=== PATIENT | male | born 1945 | race Caucasian/White ===

== ENCOUNTER 2018-10-30 10:29 | Day surgery (SDC) | payer MEDICARE, OTHER ==
[~2018-10-30] VITALS: Ht 175.3 cm; Wt 90.2 kg
[2018-10-30] MEDS ORDERED: ATOR80TA59 PO (10:39)
[2018-10-30] MEDS ORDERED: GABA-843 PO (10:39)
[2018-10-30] MEDS ORDERED: METF-839 PO (10:39)
[2018-10-30] MEDS ORDERED: RANI300T PO (10:39)
[2018-10-30] MEDS ORDERED: NS 1,000 ML IV ONE (11:15)
[2018-10-30 11:48] LABS: BASO # 0.1 10^3/uL (0.0-0.2); BASO % 0.8 % (0.0-1.0); EOS # 0.2 10^3/uL (0.0-0.50); EOS % 2.6 % (0.0-3.0); HEMATOCRIT 44.1 % (42.0-52.0); HEMOGLOBIN 14.6 g/dl (13.5-17.5); LYMPH % 23.9 % (24.0-44.0); MEAN CORPUSCULAR HEMOGLOBIN 31.3 pg (27.0-33.0); MEAN CORPUSCULAR HGB CONC 33.1 g/dl (32.0-36.5); MEAN CORPUSCULAR VOLUME 94.6 fl (80.0-96.0); MONO # 0.7 10^3/uL (0.0-0.8); MONO % 8.4 % (0.0-5.0); NEUTROPHILS # 5.4 10^3/uL (1.8-7.7); NEUTROPHILS % 63.9 % (36.0-66.0); PLATELET COUNT, AUTOMATED 321 10^3/uL (150-450); RED BLOOD COUNT 4.66 10^6/uL (4.30-6.10); WHITE BLOOD COUNT 8.4 10^3/uL (4.0-10.0)
[2018-10-30 12:48] LABS: ALBUMIN 4.5 GM/DL (3.2-5.2); ALT/SGPT 26 U/L (12-78); BILIRUBIN,DIRECT < 0.1 MG/DL (0.0-0.2); BILIRUBIN,TOTAL 0.6 MG/DL (0.2-1.0); BLOOD UREA NITROGEN 20 MG/DL (7-18); CALCIUM LEVEL 9.7 MG/DL (8.8-10.2); CARBON DIOXIDE LEVEL 28 MEQ/L (21-32); CHLORIDE LEVEL 102 MEQ/L (98-107); CREATININE FOR GFR 1.13 MG/DL (0.70-1.30); GLOMERULAR FILTRATION RATE > 60.0 (>42); GLUCOSE, FASTING 106 MG/DL (70-100); LIPASE 267 U/L (73-393); POTASSIUM SERUM 4.2 MEQ/L (3.5-5.1); SODIUM LEVEL 136 MEQ/L (136-145)
[2018-10-30] MEDS ORDERED: ISOVUE-370 76% 100ML VIAL (Q9967) As Ordered ONE (12:53)
[2018-10-30] MEDS ORDERED: MORPHINE 2 MG/ML 1ML SYRINGE (J2270) IV ONE (13:00)
--- NOTE | 2018-10-30 13:17 | REP ---
Clinical: Right-sided abdominal pain with diarrhea. Technique: Axial contrast enhanced images from the lung bases to the pubic symphysis using 100 ml Isovue 370 intravenous contrast material with coronal and sagittal re-formations. Findings: The appendix is dilated to approximately 13.6 mm and includes a small appendicolith and mild periappendiceal inflammatory stranding consistent with acute appendicitis (images [id number]). Remainder of the small large bowel is without further inflammatory process. No evidence for obstruction or perforation. Sigmoid diverticulosis noted without acute diverticulitis. Liver, spleen, pancreas, gallbladder, bilateral adrenal glands and kidneys are relatively normal. Pelvis demonstrates normal bladder and findings to suggest prior prostatectomy. No ascites. No free air. No significant adenopathy. Abdominal aorta without aneurysm or dissection. Osseous structures demonstrate degenerative changes without focal abnormality. Lung bases are clear. Impression: Findings most compatible with acute appendicitis and correlation is required. Electronically Signed by Karri Larios MD 10/30/2018 01:09 P
[2018-10-30] MEDS ORDERED: TYLE325T5 PO (15:03)
[2018-10-30] MEDS ORDERED: CIPROFLOXACIN 400 MG in APPROPRIATE DILUENT 1 EA IV ONE (15:30)
[2018-10-30] MEDS ORDERED: metroNIDAZOLE 500 MG in APPROPRIATE DILUENT 1 EA IV ONE (15:30)
[2018-10-30] MEDS ORDERED: LIDOCAINE 1% SDV INJ 30 ML VIAL As Ordered ONE (16:28)
[2018-10-30] MEDS ORDERED: BUPIVACAINE HCL 0.25% 30 ML VIAL As Ordered ONE (16:28)
[2018-10-30] MEDS ORDERED: LR 1,000 ML IV SCH ×2 (16:30→18:45)
[2018-10-30] MEDS ORDERED: fentaNYL 100 MCG/2 ML INJECTION (J3010) As Ordered ONE ×3 (16:35→18:30)
[2018-10-30] MEDS ORDERED: LIDOCAINE 2% INJ 100 MG/5 ML SDV (FOR ANES.) As Ordered ONE (16:35)
[2018-10-30] MEDS ORDERED: ROCURONIUM BROMIDE 50 MG/5 ML VIAL As Ordered ONE (16:35)
[2018-10-30] MEDS ORDERED: PROPOFOL 200 MG/20 ML VIAL As Ordered ONE (16:35)
[2018-10-30] MEDS ORDERED: MIDAZOLAM INJ 2 MG/2 ML VIAL (J2250) As Ordered ONE (16:36)
[2018-10-30] MEDS ORDERED: metroNIDAZOLE/NACL 500MG(5MG/ML)100 ML BAG (S0030) As Ordered ONE (16:36)
[2018-10-30] MEDS ORDERED: dexameTHASONE 4 MG/ML 1ML VIAL (J1100) As Ordered ONE (16:38)
[2018-10-30] MEDS ORDERED: ONDANSETRON 4MG/2ML VIAL (J2405) As Ordered ONE (16:38)
--- NOTE | 2018-10-30 17:00 | HPEPDOC ---
General Surgery H&P Date of Admission Oct 30, 2018 Attending Physician: NU ALVARES MD History and Physical CHIEF COMPLAINT: diarrhea and abdominal pain HISTORY OF PRESENT ILLNESS: Patient presented to the emergency room with complaints of a 2 week history of loose stools and were within 5-7 times a day for the past few days having right-sided abdominal discomfort. He denies any fevers chills, vomiting. Denies any sick contacts. ALLERGIES: Please see below. HOME MEDICATIONS: Please see below. PAST MEDICAL HISTORY: 1. Prostate cancer 2. Diabetes 3. Hypercholesterolemia 4. Gastroesophageal reflux PAST SURGICAL HISTORY: 1. Prostatectomy PERSONAL/SOCIAL HISTORY: Previous smoker, quit remotely. drinks 1 beer daily REVIEW OF SYSTEMS: GENERAL: Denies chills, fatigue, fever, weight gain and weight loss. HEENT: Denies blurred vision and double vision. Denies ear symptoms. Denies hoarseness. NECK: Denies any neck pain. CARDIOVASCULAR: Denies chest pain and palpitations. MUSCULOSKELETAL: Denies arthralgias, back pain and thrombophlebitis. SKIN: Denies rash. NEUROLOGIC: Denies headache, stroke and transient ischemic attack. PSYCHIATRIC: Denies anxiety and depression. ENDOCRINE: Denies thyroid disease. HEMATOLOGY/ONCOLOGY: Denies any bleeding or clotting disorder. HEART: Denies any chest pains, palpitations, paroxysmal dyspnea, orthopnea. PULMONARY: Denies chronic cough, dyspnea and wheezing. GASTROINTESTINAL: Denies rectal bleeding, family history of colon cancer, constipation, diarrhea, dysphagia, heartburn and jaundice. Patient is a colonoscopy done GENITOURINARY: Denies dysuria, frequency, hematuria and nocturia. ENDOCRINE: Denies polydipsia, polyphagia, polyuria, heat or cold intolerance. INFECTIOUS: Denies any recent upper respiratory tract infection, UTI, need for use of antibiotics. NUTRITION: Reports fair appetite. PHYSICAL EXAMINATION: VITAL SIGNS: Please see below. GENERAL APPEARANCE: Patient is comfortable. Awake, alert, oriented. HEENT: Normocephalic, atraumatic. [place] palpebral conjunctivae. Anicteric sclerae. Lips moist. CHEST: No chest wall abnormalities. Normal respiratory motion/effort. NECK: Supple. No thyromegaly. No lymphadenopathies. LUNGS: Lung sounds are clear to auscultation bilaterally. No wheezing appreciated. HEART: No chest wall abnormalities. Heart rate and rhythm are regular with no murmurs. ABDOMEN: Flat abdomen, nondistended, lower suprapubic midline incision from prostatectomy without any hernia. Minimal tenderness in the palpation of the right lower quadrant area without any guarding. SKIN: Warm, moist. EXTREMITIES: Extremities have no deformities. No edema identified. NEUROLOGICAL: Awake, alert, oriented . ANCILLARIES: . LABORATORY DATA: Please see below. MICROBIOLOGY: Please see below. IMAGING: CT abdomen and pelvis The appendix is dilated to approximately 13.6 mm and includes a small appendicolith and mild periappendiceal inflammatory stranding consistent with acute appendicitis (images [id number]). Remainder of the small large bowel is without further inflammatory process. No evidence for obstruction or perforation. Sigmoid diverticulosis noted without acute diverticulitis. IMPRESSION AND PLAN: Diarrhea Acute appendicitis I told him that it is still not clear why he is having diarrhea and in of itself appendicitis should not cause this much diarrhea. He does have discomfort over the right side of his abdomen and his CAT scans significant for an enlarged appendix containing appendicolith with associated inflammation consistent with an acute appendicitis. This we will go ahead and proceed to the operating room for planned laparoscopic appendectomy. In the ER they have sent for stool examination which did not show any evidence for any stillborn infection that might explain the diarrhea. Vital Signs Vital Signs Date Time Temp Pulse Resp B/P (MAP) Pulse Ox O2 Delivery O2 Flow Rate FiO2 10/30/18 13:46 97.5 62 16 138/68 (91) 100 Room Air Laboratory Data Labs 24H Laboratory Tests 2 10/30/18 11:31: Immature Granulocyte % (Auto) 0.4, White Blood Count 8.4, Red Blood Count 4.66, Hemoglobin 14.6, Hematocrit 44.1, Mean Corpuscular Volume 94.6, Mean Corpuscular Hemoglobin 31.3, Mean Corpuscular Hemoglobin Concent 33.1, Red Cell Distribution Width 12.0, Platelet Count 321, Neutrophils (%) (Auto) 63.9, Lymphocytes (%) (Auto) 23.9L, Monocytes (%) (Auto) 8.4H, Eosinophils (%) (Auto) 2.6, Basophils (%) (Auto) 0.8, Neutrophils # (Auto) 5.4, Lymphocytes # (Auto) 2.0, Monocytes # (Auto) 0.7, Eosinophils # (Auto) 0.2, Basophils # (Auto) 0.1, Nucleated Red Blood Cells % (auto) 0.0, Urine Color YELLOW, Urine Appearance CLEAR, Urine pH 5.0, Urine Specific [place]la 1.027, Urine Protein 1+H, Urine Glucose (UA) NEGATIVE, Urine Ketones NEGATIVE, Urine Blood NEGATIVE, Urine Nitrite NEGATIVE, Urine Bilirubin NEGATIVE, Urine Urobilinogen 0.2, Urine Leukocyte Esterase NEGATIVE, Urine WBC (Auto) 1, Urine RBC (Auto) 1, Urine Hyaline Casts (Auto) 0, Urine Bacteria (Auto) NEGATIVE, Urine Squamous Epithelial Cells 0, Urine Mucus (Auto) SMALL, Urine Sperm (Auto) , Anion Gap 6L, Glomerular Filtration Rate > 60.0, Lactic Acid Level 1.6, Calcium Level 9.7, Aspartate Amino Transf (AST/SGOT) 22, Alanine Aminotransferase (ALT/SGPT) 26, Alkaline Phosphatase 74, Total Bilirubin 0.6, Direct Bilirubin < 0.1, Total Protein 9.0H, Albumin 4.5, Albumin/Globulin Ratio 1.00, Lipase 267 CBC/BMP Laboratory Tests 10/30/18 11:31 Red Blood Count 4.66, Mean Corpuscular Volume 94.6, Mean Corpuscular Hemoglobin 31.3, Mean Corpuscular Hemoglobin Concent 33.1, Red Cell Distribution Width 12.0, Neutrophils (%) (Auto) 63.9, Lymphocytes (%) (Auto) 23.9 L, Monocytes (%) (Auto) 8.4 H, Eosinophils (%) (Auto) 2.6, Basophils (%) (Auto) 0.8, Neutrophils # (Auto) 5.4, Lymphocytes # (Auto) 2.0, Monocytes # (Auto) 0.7, Eosinophils # (Auto) 0.2, Basophils # (Auto) 0.1 Microbiology Microbiology 10/30/18 Gastrointestinal Tract Panel (PCR) - Final, Complete Home Medications Scheduled Atorvastatin Calcium (Atorvastatin Calcium) 80 Mg Tab, 40 MG PO QHS, (Reported) Gabapentin (Gabapentin) 300 Mg Cap, 300 MG PO BID, (Reported) Metformin Hydrochloride (Metformin Hydrochloride) 500 Mg Tab, 500 MG PO DAILY, (Reported) Scheduled PRN Acetaminophen (Tylenol) 325 Mg Tab, 325 MG PO Q4H PRN for PAIN / FEVER, (Reported) Ranitidine HCl (Ranitidine HCl) 300 Mg Tab, 1 TAB PO DAILY PRN for HEARTBURN, (Reported) Allergies Coded Allergies: Penicillins (Verified Allergy, Intermediate, FACIAL SWELLING, 10/30/18) NU ALVARES MD Oct 30, 2018 16:47
[2018-10-30] MEDS ORDERED: SUGAMMADEX SODIUM 500 MG/5 ML VIAL (BRIDION) As Ordered ONE (17:23)
[2018-10-30] MEDS ORDERED: ePHEDrine SULFATE 25 MG/5 ML(5MG/ML) SYRINGE As Ordered ONE (17:25)
[2018-10-30] MEDS ORDERED: ACETAMINOPHEN 325 MG TAB PO PRN (18:15)
[2018-10-30] MEDS ORDERED: FAMOTIDINE 20 MG TAB PO PRN (18:15)
--- NOTE | 2018-10-30 18:19 | ROOPDOC ---
[facility] Report Of Operation Report of Operation DATE OF PROCEDURE: 10/30/18 PREPROCEDURE DIAGNOSES: Acute Appendicitis. POSTPROCEDURE DIAGNOSES: Acute Appendicitis. PROCEDURE: Laparoscopic Appendectomy. SURGEON: Theo Borjas MD RUG SIZER: ANESTHESIA: General Anesthesia. ESTIMATED BLOOD LOSS: Approximately 10 mL. COMPLICATIONS: none. REMARKS: thickened appendix throughout the course, enlarged tip of the appendix. PROCEDURE NOTE:73 M with 10 day history of diarrhea, 2 day history of mild right lower quadrant abdominal pain. DESCRIPTION OF PROCEDURE: Patient has been given a dose of Zosyn perioperatively.Patient was brought to the operating room, placed supine on the table. Sequential compression device placed for DVT prophylaxis. General endotracheal anesthesia started. The abdomen prepped and draped in usual sterile fashion. After a surgical timeout, we began our surgery Entry into the abdomen done through an incision above the umbilicus. Veress needle inserted on a controlled fashion. Intra-abdominal placement confirmed with saline drop technique. CO2 insufflation started to a pressure of 15 mmHg. Using the same incision an 8 mm port was placed under direct vision of laparoscope. Insertion site was inspected for injury and none was found. He was placed on a Trendelenburg position the right side tilted to about 30 to allow for better visualization of the appendix. 2 5 mm working ports were placed at the suprapubic area and left lower quadrant area under direct vision. Operative findings: The appendix is noted located coursing laterally on the right lower quadrant area. Throughout its course, it appears thickened with doubling of its diameter at the tip. This was traced back to its base and this appears healthy and not involved. No free fluid. The appendix was located, The Surrounding bowels retracted away from the appendix. This was grasped and detached from its attachment to the lateral abdominal wall, to pull the base of the appendix into view. The mesoappendix was divided using Harmonic scalpel down to the base. Two PDS Endoloops were placed to ligate the appendix at its base then divided with a Harmonic Scalpel the stump cauterized. Stump appears healthy. Appendix was then delivered into an Endo Catch bag. After re-insufflation the surgical site was inspected for hemostasis, the visualized fluid collections irrigated and suctioned off until clear return. Surrounding areas of the abdomen and inspected for fluid collections or signs of injury. The abdomen was deflated. All ports removed. The umbilical fascial defect repaired with 0 Vicryl in a mattress fashion. All skin incisions closed with 4-0 Monocryl in a subcuticular fashion. Steri-Strips and gauze dressing used for wound coverage. Patient was promptly awake and extubated and brought to recovery room stable. All counts of sponges and instruments verified to be correct. THEO BORJAS MD Oct 30, 2018 18:19
--- NOTE | 2018-10-30 18:20 | POST-OPPD ---
Postoperative Procedure Note Date Of Procedure: Oct 30, 2018 PREPROCEDURE DIAGNOSES: Acute Appendicitis. POSTPROCEDURE DIAGNOSES: Acute Appendicitis. PROCEDURE: Laparoscopic Appendectomy. SURGEON: Theo Borjas MD EXECUTIVE STEWARD: ANESTHESIA: General Anesthesia. ESTIMATED BLOOD LOSS: Approximately 10 mL. COMPLICATIONS: none. REMARKS: thickened appendix throughout the course, enlarged tip of the appendix. PROCEDURE NOTE:73 M with 10 day history of diarrhea, 2 day history of mild right lower quadrant abdominal pain. SPECIMENS: appendix COMPLICATIONS: nonee POSTOPERATIVE CONDITION: stable, extubated THEO BORJAS MD Oct 30, 2018 18:20
[2018-10-30] MEDS: fentaNYL 100 MCG/2 ML INJECTION (J3010) IV PRN ×4 (18:32→19:08)
[2018-10-30] MEDS ORDERED: PERCOCET 5MG/325MG TAB PO PRN (18:45)
[2018-10-30] MEDS ORDERED: ONDANSETRON 4MG/2ML VIAL (J2405) IV PRN (18:45)
[2018-10-30] MEDS ORDERED: METOCLOPRAMIDE INJ 10MG/2ML VIAL (J2765) IV PRN (18:45)
[2018-10-30] MEDS ORDERED: HYDROMORPHONE HCL 0.5 MG/ 0.5 ML SYRINGE (J1170 PER 1) IV PRN (18:45)
[2018-10-30 19:45] VITALS: BP 174/87
[2018-10-30 20:15] VITALS: BP 167/85
[2018-10-30] MEDS: GABAPENTIN 300 MG CAP PO SCH (20:31)
[2018-10-30] MEDS ORDERED: ATORVASTATIN 20 MG TAB PO SCH (21:00)
[2018-10-30 21:15] VITALS: BP 139/72
[2018-10-30 22:15] VITALS: BP 150/72
[2018-10-30 23:15] VITALS: BP 130/68
[2018-10-31 00:15] VITALS: BP 135/65
[2018-10-31 02:00] VITALS: BP 140/67
[2018-10-31 06:00] VITALS: BP 149/75
[2018-10-31 06:02] LABS: BASO % 0.2 % (0.0-1.0); HEMATOCRIT 40.7 % (42.0-52.0); HEMOGLOBIN 13.6 g/dl (13.5-17.5); LYMPH # 1.2 10^3/uL (1.5-4.5); LYMPH % 8.9 % (24.0-44.0); MEAN CORPUSCULAR HEMOGLOBIN 31.5 pg (27.0-33.0); MEAN CORPUSCULAR HGB CONC 33.4 g/dl (32.0-36.5); MEAN CORPUSCULAR VOLUME 94.2 fl (80.0-96.0); MONO # 0.8 10^3/uL (0.0-0.8); MONO % 6.4 % (0.0-5.0); NEUTROPHILS # 10.9 10^3/uL (1.8-7.7); NEUTROPHILS % 83.9 % (36.0-66.0); PLATELET COUNT, AUTOMATED 285 10^3/uL (150-450); RED BLOOD COUNT 4.32 10^6/uL (4.30-6.10); WHITE BLOOD COUNT 12.9 10^3/uL (4.0-10.0)
[2018-10-31 06:25] LABS: BLOOD UREA NITROGEN 15 MG/DL (7-18); CALCIUM LEVEL 8.5 MG/DL (8.8-10.2); CARBON DIOXIDE LEVEL 25 MEQ/L (21-32); CHLORIDE LEVEL 105 MEQ/L (98-107); CREATININE FOR GFR 0.95 MG/DL (0.70-1.30); GLOMERULAR FILTRATION RATE > 60.0 (>42); GLUCOSE, FASTING 114 MG/DL (70-100); POTASSIUM SERUM 4.4 MEQ/L (3.5-5.1); SODIUM LEVEL 137 MEQ/L (136-145)
[2018-10-31] MEDS ORDERED: KETOROLAC 30 MG/ML VIAL (J1885) IV PRN (06:45)
[2018-10-31] MEDS: PERCOCET 5MG/325MG TAB PO PRN ×2 (07:04→13:48)
[2018-10-31] MEDS: GABAPENTIN 300 MG CAP PO SCH (09:22)
[2018-10-31 10:00] VITALS: BP 128/70
[2018-10-31] MEDS ORDERED: PERCOCET PO (13:24)
--- NOTE | 2018-10-31 13:27 | IPNPDOC ---
Subjective General Date/Time Seen The patient was seen on 10/31/18 at 13:25. Subject Chief Complaint/History The patient is a 73-year-old male admitted with a reason for visit of Acute Appendicitis. Feels better. He has not had a BM during this admission. Tolerating diet. Current Medications Current Medications Current Medications Acetaminophen (Tylenol Tab) 325 mg Q4H PRN PO PAIN / FEVER Last administered on 10/31/18at 03:14; Start 10/30/18 at 18:15 Atorvastatin Calcium (Lipitor) 40 mg QHS PO Last administered on 10/30/18at 20:30; Start 10/30/18 at 21:00 Famotidine (Pepcid) 20 mg DAILY PRN PO HEARTBURN; Start 10/30/18 at 18:15 Fentanyl Citrate (Sublimaze) 25 mcg Q5MP PRN IV MODERATE PAIN (PS 4-7) Last administered on 10/30/18at 19:08; Start 10/30/18 at 18:45; Stop 10/30/18 at 19:08; Status DC Gabapentin (Neurontin) 300 mg BID PO Last administered on 10/31/18at 09:22; Start 10/30/18 at 21:00 Home Med (Med Rec Complete!) ASDIRECTED XX ; Start 10/30/18 at 15:15; Stop 10/30/18 at 15:22; Status DC Hydromorphone HCl (Dilaudid) 0.4 mg Q5MP PRN IV MODERATE/SEVERE PAIN (PS 5-10); Start 10/30/18 at 18:45; Stop 10/30/18 at 19:45; Status DC Ketorolac Tromethamine (ToRADol) 30 mg Q6H PRN IV PAIN; Start 10/31/18 at 06:45; Stop 11/05/18 at 06:44 Lactated Ringer's 1,000 ml @ 75 mls/hr [id number] IV ; Start 10/30/18 at 18:45; Stop 10/30/18 at 19:45; Status DC Lactated Ringer's 1,000 ml @ 125 mls/hr Q8H IV ; Start 10/30/18 at 16:30; Stop 10/31/18 at 06:42; Status DC Metoclopramide HCl (REGLAN INJection) 10 mg Q6HP PRN IV NAUSEA OR VOMITING; Start 10/30/18 at 18:45; Stop 10/30/18 at 19:45; Status DC Ondansetron HCl (ZOFRAN INJection) 4 mg Q4HP PRN IV NAUSEA OR VOMITING; Start 10/30/18 at 18:45; Stop 10/30/18 at 19:45; Status DC Oxycodone/ Acetaminophen (Percocet 5mg/ 325mg Tablet) 1 tab ASDIRECTED PRN PO MILD/MODERATE PAIN (PS 1-7) Last administered on 10/30/18at 19:20; Start 10/30/18 at 18:45; Stop 10/30/18 at 19:45; Status DC Oxycodone/ Acetaminophen (Percocet 5mg/ 325mg Tablet) 1 tab Q6HP PRN PO MILD/MODERATE PAIN (PS 1-7) Last administered on 10/31/18at 07:04; Start 10/31/18 at 06:45 Allergies Coded Allergies: Penicillins (Verified Allergy, Intermediate, FACIAL SWELLING, 10/30/18) Objective Physical Examination Examination GENERAL APPEARANCE:comfortable. SKIN: Warm and moist. HEENT: Normocephalic, atraumatic. [place] palpebral conjunctiva, anicteric sclerae. Lips and mucosa appear moist. NECK: Supple, no thyromegaly. No obvious jugular venous distention. LUNGS: Clear to auscultation bilaterally. No wheezing appreciated. HEART: No chest wall abnormalities. Regular rate and rhythm with no murmurs appreciated. ABDOMEN: Abdomen is mildly round, soft, nondistended. Port site dressings are clean, dry, intact. Nontender to palpation over right lower quadrant area. EXTREMITIES: Extremities have no deformities. No edema identified. Vital Signs Vital Signs Date Time Temp Pulse Resp B/P (MAP) Pulse Ox O2 Delivery O2 Flow Rate FiO2 10/31/18 10:00 98.3 73 18 128/70 (89) 96 10/30/18 18:45 2 10/30/18 16:46 Room Air I&Os I&O- Last 24 Hours up to 6 AM 10/31/18 06:00 Intake Total 1600 ml Output Total 10 ml Balance 1590 ml Laboratory Data Labs 24H Laboratory Tests 2 10/31/18 05:51: Immature Granulocyte % (Auto) 0.6, White Blood Count 12.9H, Red Blood Count 4.32, Hemoglobin 13.6, Hematocrit 40.7L, Mean Corpuscular Volume 94.2, Mean Corpuscular Hemoglobin 31.5, Mean Corpuscular Hemoglobin Concent 33.4, Red Cell Distribution Width 11.9, Platelet Count 285, Neutrophils (%) (Auto) 83.9H, Lymphocytes (%) (Auto) 8.9L, Monocytes (%) (Auto) 6.4H, Eosinophils (%) (Auto) 0.0, Basophils (%) (Auto) 0.2, Neutrophils # (Auto) 10.9H, Lymphocytes # (Auto) 1.2L, Monocytes # (Auto) 0.8, Eosinophils # (Auto) 0.0, Basophils # (Auto) 0.0, Nucleated Red Blood Cells % (auto) 0.0, Anion Gap 7L, Glomerular Filtration Rate > 60.0, Blood Urea Nitrogen 15, Creatinine 0.95, Sodium Level 137, Potassium [place] 4.4, Chloride Level 105, Carbon Dioxide Level 25, Calcium Level 8.5L CBC/BMP Laboratory Tests 10/31/18 05:51 Red Blood Count 4.32, Mean Corpuscular Volume 94.2, Mean Corpuscular Hemoglobin 31.5, Mean Corpuscular Hemoglobin Concent 33.4, Red Cell Distribution Width 11.9, Neutrophils (%) (Auto) 83.9 H, Lymphocytes (%) (Auto) 8.9 L, Monocytes (%) (Auto) 6.4 H, Eosinophils (%) (Auto) 0.0, Basophils (%) (Auto) 0.2, Neutrophils # (Auto) 10.9 H, Lymphocytes # (Auto) 1.2 L, Monocytes # (Auto) 0.8, Eosinophils # (Auto) 0.0, Basophils # (Auto) 0.0, Calcium Level 8.5 L Microbiology Microbiology 10/30/18 Gastrointestinal Tract Panel (PCR) - Final, Complete Impression POD1 Laparoscopic Appendectomy for Acute Appendicitis diarrhea OK to go home. No need for antibiotics. Percocets prn for pain follow up with me in 2 weeks Consider outpatient colonoscopy (Patient has been previously seen by a Dr. Stallworth and is set to be scheduled for this) Plan / VTE VTE Prophylaxis Ordered?: No VTE Exclusion Mechanical Proph: Low Risk for VTE NU ALVARES MD Oct 31, 2018 13:27
== END 2018-10-31 14:05 | disposition home or self-care (01) ==
LOC: M ED 10:29 → M SDC 16:12 → M MS5PR 19:40 → M SDC 10-31 14:05
PROVIDERS: ATTEND Surgery
DX: K35.890 Other acute appendicitis without perforation or gangrene (principal); E11.9 Type 2 diabetes mellitus without complications; E78.5 Hyperlipidemia, unspecified; Z88.0 Allergy status to penicillin; Z79.4 Long term (current) use of insulin; Z79.899 Other long term (current) drug therapy; Z87.891 Personal history of nicotine dependence; Z85.46 Personal history of malignant neoplasm of prostate
CPT/HCPCS: 36415; 44970; 74177; 80048; 80076; 81001; 83605; 83690; 85025; 87507; 88304; 96365; 96375; 99284; J0744; J1100; J2250; J2405; J3010; Q9967

== ENCOUNTER → 2020-04-22 | Outpatient (CLI) | payer MEDICARE ==
[~2020-04-22] MED LIST: ATOR80TA59 PO; FAMO40TA3 PO; GABA-843 PO; MAPA500T2 PO; METF-839 PO; PANT40TA29 PO; PERCOCET PO; RANI300T PO; TYLE325T5 PO
== END ==
LOC: M LABSMTC 10:34
PROVIDERS: ATTEND Anesthesiology
DX: Z01.812 Encounter for preprocedural laboratory examination (principal); Z20.828 Contact with and (suspected) exposure to other viral communicable diseases
CPT/HCPCS: C9803; U0003

== ENCOUNTER 2020-04-27 06:48 | Day surgery (SDC) | payer MEDICARE ==
[~2020-04-27] VITALS: Ht 180.3 cm; Wt 86.2 kg
[~2020-04-27 06:48] MED LIST changes: +NS 1,000 ML IV ONE
[2020-04-27] MEDS ORDERED: SIMETHICONE 40MG/0.6ML DROPS 30ML As Ordered ONE (07:01)
[2020-04-27] MEDS ORDERED: LIDOCAINE 2% 100MG/5ML SDV (FOR ANES.) As Ordered ONE (07:09)
[2020-04-27] MEDS ORDERED: propofoL 200 MG/20 ML VIAL As Ordered ONE (07:09)
--- NOTE | 2020-04-27 08:14 | ROOR ---
Patient Name: Robb Blackmon Procedure Date: 04/27/2020 7:33 AM Date of : 1945 Age: 75 Room: [facility] Gender: Male Note Status: Finalized Procedure: Upper GI endoscopy Indications: Surveillance for malignancy due to personal history of Olmedo's esophagus Providers: Martínez Adames MD Referring MD: Jose G Montilla DO Requesting Provider: Medicines: Monitored Anesthesia Care Complications: No immediate complications. Procedure: Pre-Anesthesia Assessment: - Prior to the procedure, a History and Physical was performed, and patient medications and allergies were reviewed. The patient is competent. The risks and benefits of the procedure and the sedation options and risks were discussed with the patient. All questions were answered and informed consent was obtained. Patient identification and proposed procedure were verified by the physician, the nurse and the anesthesiologist in the procedure room. Mental Status Examination: alert and oriented. Airway Examination: normal oropharyngeal airway and neck mobility. Respiratory Examination: clear to auscultation. CV Examination: normal. Prophylactic Antibiotics: The patient does not require prophylactic antibiotics. Prior Anticoagulants: The patient has taken no previous anticoagulant or antiplatelet agents. ASA Grade Assessment: II - A patient with mild systemic disease. After reviewing the risks and benefits, the patient was deemed in satisfactory condition to undergo the procedure. The anesthesia plan was to use monitored anesthesia care (MAC). Immediately prior to administration of medications, the patient was re-assessed for adequacy to receive sedatives. The heart rate, respiratory rate, oxygen saturations, blood pressure, adequacy of pulmonary ventilation, and response to care were monitored throughout the procedure. The physical status of the patient was re-assessed after the procedure. The Endoscope was introduced through the mouth, and advanced to the second part of duodenum. The upper GI endoscopy was accomplished without difficulty. The patient tolerated the procedure well. Findings: The esophagus and gastroesophageal junction were examined with white light and narrow band imaging (NBI) from a forward view and retroflexed position. There were esophageal mucosal changes consistent with long-segment Olmedo's esophagus. These changes involved the mucosa at the upper extent of the gastric folds (42 cm from the incisors) extending to the Z-line (36 cm from the incisors). Circumferential salmon-colored mucosa was present from 33 to 42 cm, one tongue of salmon-colored mucosa was present from 32 to 33 cm and scattered islands of squamous mucosa were present. The maximum longitudinal extent of these esophageal mucosal changes was 6 cm in length. Mucosa was biopsied with a cold forceps for histology in a targeted manner and in 4 quadrants at intervals of 2 cm in the lower third of the esophagus. One specimen bottle was sent to pathology. Verification of patient identification for the specimen was done by the physician and nurse using the patient's name, date and medical record number. A small hiatal hernia was present. Scattered mild inflammation characterized by erythema and granularity was found in the gastric antrum. Biopsies were taken with a cold forceps for Helicobacter pylori testing. The duodenal bulb and second portion of the duodenum were normal. 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 Biopsied. - Small hiatal hernia. - Gastritis. Biopsied. - Normal duodenal bulb and second portion of the duodenum. Recommendation: - Patient has a contact number available for emergencies. The signs and symptoms of potential delayed complications were discussed with the patient. Return to normal activities tomorrow. Written discharge instructions were provided to the patient. - High fiber diet. - Continue present medications. - Await pathology results. - Repeat upper endoscopy in 1 year for surveillance of Olmedo's esophagus. - Telephone GI clinic for pathology results in 2 weeks. - Follow an antireflux regimen. - Return to primary care physician. Martínez Adames MD Martínez Adames MD 04/27/2020 8:14:44 AM Electronically signed by Martínez Adames MD Number of Addenda: 0 Note Initiated On: 04/27/2020 7:33 AM Estimated Blood Loss: Estimated blood loss was minimal.
[2020-04-27 08:32] VITALS: BP 149/66
== END 2020-04-27 08:32 | disposition home or self-care (01) ==
LOC: M OPP 06:48
PROVIDERS: ATTEND Internal Medicine Gastroenterology
DX: K22.70 Barrett's esophagus without dysplasia (principal); K44.9 Diaphragmatic hernia without obstruction or gangrene; K29.70 Gastritis, unspecified, without bleeding; Z09 Encounter for follow-up examination after completed treatment for conditions other than malignant neoplasm; E11.9 Type 2 diabetes mellitus without complications; J44.9 Chronic obstructive pulmonary disease, unspecified; Z79.899 Other long term (current) drug therapy; Z88.0 Allergy status to penicillin; Z87.891 Personal history of nicotine dependence; Z85.46 Personal history of malignant neoplasm of prostate

== ENCOUNTER 2020-10-21 09:34 | Emergency (ER) | payer MEDICARE ==
[~2020-10-21] VITALS: Ht 182.9 cm; Wt 89.5 kg
[~2020-10-21 09:34] MED LIST changes: +GABA-282 PO; -GABA-843 PO; -NS 1,000 ML IV ONE
--- NOTE | 2020-10-21 11:54 | REP ---
INDICATION: cough with bloody sputum, hx prostate cancer. COMPARISON: No comparison chest x-ray. TECHNIQUE: Two views.. FINDINGS: The lungs are well inflated and free of infiltrate. The pleural angles are sharp. The heart size is normal. Pulmonary vasculature is not increased. No significant bony abnormality is seen. The thoracic aorta is slightly tortuous. IMPRESSION: No active disease.. <Electronically signed by Pankaj Live > 10/21/20 [id number]
[2020-10-21 12:38] LABS: INR 1.02; PARTIAL THROMBOPLASTIN TIME 25.1 SECONDS (24.2-38.5); PROTHROMBIN TIME 13.6 SECONDS (12.5-14.3)
[2020-10-21] MEDS ORDERED: ISOVUE-370 76% 100ML VIAL As Ordered ONE (12:39)
[2020-10-21 12:41] LABS: D-DIMER QUANT 438.95 ng/ml (<500)
[2020-10-21 12:53] LABS: ALBUMIN 3.9 GM/DL (3.2-5.2); ALT/SGPT 25 U/L (12-78); BILIRUBIN,DIRECT < 0.1 MG/DL (0.0-0.2); BILIRUBIN,TOTAL 0.5 MG/DL (0.2-1.0); TOTAL PROTEIN 8.1 GM/DL (6.4-8.2)
[2020-10-21 13:03] LABS: BASO # 0.1 10^3/uL (0.0-0.2); BASO % 0.7 % (0.0-1.0); EOS # 0.2 10^3/uL (0.0-0.5); EOS % 2.6 % (0.0-3.0); HEMATOCRIT 41.3 % (42.0-52.0); HEMOGLOBIN 12.9 g/dl (13.5-17.5); LYMPH # 2.2 10^3/uL (1.5-5.0); LYMPH % 24.4 % (24.0-44.0); MEAN CORPUSCULAR HEMOGLOBIN 29.9 pg (27.0-33.0); MEAN CORPUSCULAR HGB CONC 31.2 g/dl (32.0-36.5); MEAN CORPUSCULAR VOLUME 95.8 fl (80.0-96.0); MONO # 0.8 10^3/uL (0.0-0.8); MONO % 8.5 % (2.0-8.0); NEUTROPHILS # 5.7 10^3/uL (1.5-8.5); NEUTROPHILS % 63.7 % (36.0-66.0); PLATELET COUNT, AUTOMATED 351 10^3/uL (150-450); RED BLOOD COUNT 4.31 10^6/uL (4.30-6.10)
--- NOTE | 2020-10-21 13:10 | REP ---
INDICATION: hemoptysis, hx barretts esophagus, prostate cx. COMPARISON: Comparison is made with today's chest x-ray.. TECHNIQUE: Helical scanning is acquired. 3 mm axial images are generated. Coronal and sagittal MPR and coronal MIP images are generated. FINDINGS: There is no evidence of infiltrate or atelectasis. No pleural or pericardial effusion is seen. There are several pulmonary nodules. There is a spiculated appearing right middle lobe nodule displayed on page 58 of 116 in series 201 of today's study. This measures 0.9 cm in greatest diameter. There is a smoothly marginated noncalcified nodule in the left lower lobe on page 64 of 116. There is a perifissural nodule in the left lower lobe on page 61 and a granulomatous calcification is seen in the left lower lobe on page 55. No other suspicious pulmonary nodules are seen. There is vascular calcification in the coronary artery distribution. There are scattered normal sized mediastinal lymph nodes. The largest of these is pretracheal lymph node measuring 8 mm in short axis dimension. No axillary or supraclavicular adenopathy is seen. No hilar adenopathy is appreciated. No endobronchial lesion is seen. In the abdomen, normal adrenal glands are seen. The visualized upper abdominal structures are unremarkable. Study is otherwise unremarkable. No bony destructive lesion is seen. IMPRESSION: There are 2 suspicious pulmonary nodules as described above, 1 in the right middle lobe and the other in the left lower lobe. Consider pulmonary medicine evaluation and possibly PET-CT study. Otherwise no active disease. <Electronically signed by Pankaj Live > 10/21/20 [id number]
[2020-10-21] MEDS ORDERED: PROAAER10 INH (13:53)
[2020-10-21] MEDS ORDERED: MOXI1TAB PO (13:53)
[2020-10-21 14:04] VITALS: BP 168/81
--- NOTE | 2020-10-22 12:38 | ED PDOC ---
Post-Departure Follow-Up ct chest faxed to dr chisholm for fu Dutch Golden MD Oct 22, 2020 12:38
== END 2020-10-21 14:06 | disposition home or self-care (01) ==
LOC: M ED 09:34
DX: J44.0 Chronic obstructive pulmonary disease with (acute) lower respiratory infection (principal); R91.1 Solitary pulmonary nodule; E11.9 Type 2 diabetes mellitus without complications; E78.5 Hyperlipidemia, unspecified; K22.70 Barrett's esophagus without dysplasia; Z79.899 Other long term (current) drug therapy; Z88.0 Allergy status to penicillin; Z87.891 Personal history of nicotine dependence

== ENCOUNTER → 2020-11-26 | Outpatient (CLI) | payer MEDICARE ==
[~2020-11-26] MED LIST changes: +MOXI1TAB PO; +PROAAER10 INH
--- NOTE | 2020-11-27 07:08 | REP ---
INDICATION: DIAGNOSING OTHER NON SPECIFIC FINDING LUNG FIELD. There is a history of prostate carcinoma. 9 mm nodule in the right middle lobe and 10 mm nodule in the left lower lobe on slice recent CT study. COMPARISON: Comparison CT study October 21, 2020.. TECHNIQUE: Sixty-nine minutes following the intravenous injection of a 13.57 mCi dose of F-18 FDG, three-dimensional PET scintigraphy is acquired from the skull base to the proximal thighs. Triplanar noncontrast CT scanning is acquired through the same anatomic range for attenuation correction, and image registration with scan parameters optimized to minimize radiation exposure to the patient. PET scintigraphy and CT datasets were fused and displayed on a workstation with multiplanar and projection display capability. FINDINGS: Head and neck soft tissues are unremarkable. There is no abnormal hypermetabolic uptake within the thorax. No hilar or mediastinal palak hypermetabolic uptake is seen. The right middle lobe nodule shows maximum standard uptake value of 1.06 and the left lower lobe pulmonary nodule maximum standard uptake values 1.27. There is no visible uptake in either nodule. In the abdomen and pelvis there is normal distribution of FDG to the liver, spleen, gastrointestinal, and genitourinary tracts. No abnormal adrenal uptake is seen. No abnormal abdominal or pelvic hypermetabolic uptake focus is seen. IMPRESSION: Negative PET scintigraphy. Neither of the 2 recently identified pulmonary nodules show hypermetabolic uptake. This does not completely exclude low grade malignancy. If histologic sampling is not pursued at this juncture, short interval follow-up by CT is recommended, 4-6 month time interval. <Electronically signed by Pankaj Live > 11/27/20 [id number]
== END ==
LOC: M PLARAD 14:47
PROVIDERS: ATTEND Internal Medicine Pulmonary Disease
DX: R91.8 Other nonspecific abnormal finding of lung field (principal)
CPT/HCPCS: 78815; A9552

== ENCOUNTER → 2020-11-27 | Outpatient (CLI) | payer MEDICARE ==
--- NOTE | 2020-11-27 12:19 | PFTRPT ---
Height: 69.00 Inches Weight: 190.00 Lbs BSA: 2.02 Diagnosis: R91.8 DATE: 11/27/2020 ORDERING PHYSICIAN: ISABELLA CARREON MD Pre and post bronchodilator studies have excellent technical quality. Forced vital capacity is normal. FEV1 is in proportion. Obstructive index is therefore normal. Expiratory limit of the flow-volume loop is reasonably normal. Total lung capacity is normal. Residual volume is in proportion. Diffusing capacity is normal. Hemoglobin is acceptable at 15.7. Airway resistance and conductance are normal. IMPRESSION: Normal study. MTDD
== END ==
LOC: M CARPUL 11:37
PROVIDERS: ATTEND Internal Medicine Pulmonary Disease
DX: R91.8 Other nonspecific abnormal finding of lung field (principal)

== ENCOUNTER → 2021-02-01 | Outpatient (REF) | payer MEDICARE ==
[2021-02-01 18:14] LABS: SOURCE, BODY FLUID GLUCOSE LFT KNEE
[2021-02-01 18:41] LABS: SOURCE, BODY FLUID LFT KNEE; SYNOVIAL FLUID COLOR YELLOW (COLORLESS)
[2021-02-02 10:40] LABS: CRYSTALS, BODY FLUID NONE SEEN (NONE SEEN); SOURCE, BODY FLUID CRYSTALS LFT KNEE
[2021-02-04 13:25] LABS: BODY FLUID RHEUMATOID SCREEN NEGATIVE (NEGATIVE)
[2021-02-04 13:26] LABS: MUCIN CLOT TEST 4+ (4+)
== END ==
LOC: M LAB REF 17:20
PROVIDERS: ATTEND Orthopaedic Surgery
DX: M25.462 Effusion, left knee (principal)

== ENCOUNTER → 2021-03-21 | Outpatient (CLI) | payer MEDICARE ==
[2021-03-21 17:40] LABS: BASO # 0.1 10^3/uL (0.0-0.2); BASO % 0.9 % (0.0-1.0); EOS # 0.2 10^3/uL (0.0-0.5); EOS % 2.5 % (0.0-3.0); HEMOGLOBIN 11.8 g/dl (13.5-17.5); LYMPH # 2.3 10^3/uL (1.5-5.0); LYMPH % 24.6 % (24.0-44.0); MEAN CORPUSCULAR HEMOGLOBIN 29.3 pg (27.0-33.0); MEAN CORPUSCULAR HGB CONC 31.1 g/dl (32.0-36.5); MEAN CORPUSCULAR VOLUME 94.3 fl (80.0-96.0); MONO # 0.8 10^3/uL (0.0-0.8); MONO % 8.8 % (2.0-8.0); NEUTROPHILS % 62.8 % (36.0-66.0); PLATELET COUNT, AUTOMATED 384 10^3/uL (150-450); RED BLOOD COUNT 4.03 10^6/uL (4.30-6.10); WHITE BLOOD COUNT 9.5 10^3/uL (4.0-10.0)
[2021-03-21 19:00] LABS: C REACTIVE PROTEIN QUANTITATIV 0.45 MG/DL (0.00-0.30); RHEUMATOID FACTOR QUANT 10.2 IU/ML (<15.0)
[2021-03-21 19:44] LABS: ERYTHROCYTE SEDIMENTATION RATE 42 mm/hr (0-20)
[2021-03-25 16:11] LABS: ANTINUCLEAR ANTIBODIES DIRECT Negative (Negative); Lyme Disease IgG Ab 18 kDa Ban Present (.); Lyme Disease IgG Ab 23 kDa Ban Present (.); Lyme Disease IgG Ab 28 kDa Ban Present (.); Lyme Disease IgG Ab 30 kDa Ban Present (.); Lyme Disease IgG Ab 39 kDa Ban Present (.); Lyme Disease IgG Ab 41 kDa Ban Present (.); Lyme Disease IgG Ab 45 kDa Ban Present (.); Lyme Disease IgG Ab 58 kDa Ban Present (.); Lyme Disease IgG Ab 66 kDa Ban Present (.); Lyme Disease IgG Ab 93 kDa Ban Present (.); Lyme Disease IgG West Blot Int Positive (.); Lyme Disease IgG/IgM Antibodie 4.14 ISR (0.00-0.90); Lyme Disease IgM Ab 23 kDa Ban Present (.); Lyme Disease IgM Ab 39 kDa Ban Present (.); Lyme Disease IgM Ab 41 kDa Ban Absent (.); Lyme Disease IgM Ab Quantitati <0.80 index (0.00-0.79); Lyme Disease IgM West Blot Int Positive (.)
== END ==
LOC: M PLALAB 14:37
PROVIDERS: ATTEND Orthopaedic Surgery
DX: M17.12 Unilateral primary osteoarthritis, left knee (principal); Z79.899 Other long term (current) drug therapy

== ENCOUNTER → 2021-05-22 | Outpatient (CLI) | payer MEDICARE ==
--- NOTE | 2021-05-22 11:21 | REP ---
INDICATION: ABN FINDING OF LUNG COMPARISON: 10/21/2020 the only prior TECHNIQUE: Standard helical technique without contrast FINDINGS: There are multiple nonenlarged stable appearing mediastinal lymph nodes. There are no pleural or pericardial effusions. There is no significant change in appearance of the imaged upper abdomen or imaged osseous structures. There is a nonobstructing left nephrolith which is unchanged from prior CT of the abdomen 10/30/2018. Evaluation of the lung parada shows biapical pleuroparenchymal scarring status quo. There is a 1 cm sized spiculated nodule in the right middle lobe which has not changed significantly by my measurement. There is an unchanged smoothly marginated 1 cm sized nodule in the left lower lobe which has not changed significantly by my measurement. There are 2 nodules in left lower lobe abutting the major fissure which are unchanged. There are multiple incidental calcified granulomas status quo. No new abnormal nodules, masses, or opacities have developed. IMPRESSION: Stable CT findings as described above. Follow-up as clinically relevant. <Electronically signed by Donny Banda > 05/22/21 [id number]
== END ==
LOC: M RAD 10:05
PROVIDERS: ATTEND Internal Medicine Pulmonary Disease
DX: R91.8 Other nonspecific abnormal finding of lung field (principal); N20.0 Calculus of kidney